=== PATIENT | male | born 1990 | race African-American/Black ===

== ENCOUNTER 2018-11-25 17:11 | Inpatient (IN) ==
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
--- NOTE | 2018-11-25 17:59 | XRay Report ---
XR chest 1V portable CLINICAL HISTORY: Chest Pain pain COMPARISON STUDY: No previous studies for comparison. FINDINGS: The bones soft tissues and hemidiaphragms are normal. The cardiomediastinal silhouette is n ormal. The lungs are clear. The pulmonary vasculature is normal. IMPRESSION: Negative chest. The above report was generated using voice recognition software. It may contain grammatical, syntax or spelling errors. Electronically signed by: Telly Coleman M.D. 11/25/2018 5:57 PM
[2018-11-25 18:55] LABS: Basophils # (auto) 0.02 K/uL (0-0.2); Basophils % (auto) 0.1 %; Hematocrit (blood only) 39.5 % (42-52); Hemoglobin 13.3 g/dL (14.0-18.0); Immature Granulocytes # (auto) 0.09 K/uL (0.00-0.02); Immature Granulocytes % (auto) 0.6 %; Lymphocytes # (auto) 0.89 K/uL (1.2-3.4); Lymphocytes % (auto) 5.5 %; Mean Corpuscular Hgb Conc 33.7 g/dL (32-36); Mean Corpuscular Volume 96.1 fL (80-100); Monocytes # (auto) 0.97 K/uL (0.11-0.59); Neutrophils # (auto) 14.32 K/uL (1.4-6.5); Neutrophils % (auto) 87.8 %; Platelet Count 179 K/uL (130-400); RDW Coefficient of Variation 12.2 % (11.5-14.5); RDW Standard Deviation 42.5 fL (36.4-46.3); Red Blood Count 4.11 M/uL (4.7-6.1); White Blood Count 16.29 K/uL (4.8-10.8)
[2018-11-25 19:12] LABS: Alanine Aminotransferase 33 U/L (12-78); Albumin Level 3.9 gm/dl (3.4-5.0); Aspartate Aminotransferase 18 U/L (15-37); BUN Creatinine Ratio 9.1 (10-20); Bilirubin Direct 0.2 mg/dl (0-0.2); Blood Urea Nitrogen 11 mg/dl (7-18); Calcium 8.8 mg/dl (8.5-10.1); Carbon Dioxide 25 mmol/L (21-32); Chloride 109 mmol/L (98-107); Creatinine Clr Calc Pharmacy 137.7 ml/min; Est GFR (African American) 97.1; Est GFR (Non-African American) 83.8; Glucose 103 mg/dl (70-99); Magnesium 1.6 mg/dl (1.8-2.4); Potassium 4.1 mmol/L (3.5-5.1); Sodium 139 mmol/L (136-145)
[2018-11-25 19:23] LABS: Albumin Globulin Ratio 1.3 (0.9-2); Alkaline Phosphatase 52 U/L (45-117); Bilirubin,Total 0.8 mg/dl (0.2-1); Total Protein 6.9 gm/dl (6.4-8.2); Troponin I < 0.015 ng/ml (0-0.045)
[2018-11-25 19:36] LABS: T4 Free Thyroxine 0.96 ng/dl (0.8-1.6)
--- NOTE | 2018-11-25 20:39 | Ultrasound Report ---
US venous doppler LE LT CLINICAL HISTORY: LLE PAIN. EDEMA. COMPARISON STUDY: No previous studies for comparison. FINDINGS: Real-time and color flow Doppler imaging were performed. Flow was seen within the femoral, popliteal and calf veins with no intraluminal thrombus demonstrated. The saphenous vein is patent. IMPRESSION: No evidence of deep venous thrombosis. Note is made that there is a occluded vascular gra ft within the left groin and thigh The above report was generated using voice recognition software. It may contain grammatical, syntax or spelling errors. Electronically signed by: Telly Coleman M.D. 11/25/2018 8:38 PM
[2018-11-25] MEDS ORDERED: OPTIRAY 320 125ml IV PRN (20:41)
--- NOTE | 2018-11-25 20:41 | Ultrasound Report ---
US extremity non-vascular ltd CLINICAL HISTORY: evaluate Left inguinal mass vs LN vs abscess pain. Edema. COMPARISON STUDY: No previous studies for comparison. FINDINGS: Lymph node within the left inguinal region having maximum dimensions of 4 x 3.5 x 1.5 cm. T his has generally benign morphology with a fatty hilum. This may be reactive. IMPRESSION: Lymph node within the left inguinal region as described. This has generally benign morph ology and may be reactive. The above report was generated using voice recognition software. It may contain grammatical, syntax or spelling errors. Electronically signed by: Telly Coleman M.D. 11/25/2018 8:39 PM
--- NOTE | 2018-11-25 21:01 | CT Scan Report ---
CT angio chest PE protocol CT DOSE: HISTORY: Dyspnea. Chest pain. PE TECHNIQUE: Multiaxial CT images of the chest were performed following the intravenous administration of contrast to evaluate the pulmonary arteries. Maximal intensity projection images were also obtaine d. A dose lowering technique was utilized adhering to the principles of ALARA. COMPARISON STUDY: None. FINDINGS: Lungs are considered grossly clear. Thoracic aorta is negative for aneurysm or dissection. There are several filling defects involving the second and third order left lower lobe pulmonary angelica rial vasculature. Remaining pulmonary vessels enhance appropriately. No significant mediastinal or hilar adenopathy. IMPRESSION: 1. Study is positive for several small pulmonary emboli involving the left lower lobe pulmonary arter ial distribution. 2. No evidence for main or central pulmonary embolus. 3. The lungs are clear. The above report was generated using voice recognition software. It may contain grammatical, syntax or spelling errors. Electronically signed by: Telly Coleman M.D. 11/25/2018 8:58 PM
--- NOTE | 2018-11-25 21:06 | CT Scan Report ---
CT abd pelvis IV con only CT DOSE: 2383.37 mGy.cm HISTORY: Pain Left lower abdominal pain TECHNIQUE: Multiaxial CT images of the abdomen and pelvis were performed following the use of intrave nous contrast. A dose lowering technique was utilized adhering to the principles of ALARA. COMPARISON STUDY: None. FINDINGS: The lung bases are clear. The liver, spleen, gallbladder, pancreas, kidneys, and adrenal gl ands are within normal limits. No bowel wall thickening or obstruction. The pelvic organs are unremar kable. No suspicious lytic or blastic osseous lesions. IMPRESSION: No significant abnormality identified within the abdomen or pelvis. The above report was generated using voice recognition software. It may contain grammatical, syntax or spelling errors. Electronically signed by: Telly Coleman M.D. 11/25/2018 9:04 PM
[2018-11-25] MEDS ORDERED: ENOXAPARIN 1 MG/KG SQ STA (21:12)
[2018-11-25] MEDS ORDERED: MAGNESIUM SULFATE / D5W 1 GM/100 ML BAG IV STA (21:13)
[2018-11-25] MEDS ORDERED: ENOXAPARIN 150 MG/ML SYR SQ ONE (21:30)
[2018-11-25] MEDS ORDERED: SODIUM CHLORIDE 0.9% 1000ML 2,000 ML IV ONE (21:35)
[2018-11-25] MEDS ORDERED: ACETAMINOPHEN 1,000 MG/100 ML VIAL IV STA (21:35)
[2018-11-25 22:08] LABS: Appearance Urine Clear (Clear); Bilirubin Urine Negative (Negative); Color Urine Orange; Glucose Urine UA Negative (Negative); Ketones Urine Negative (Negative); Leukocyte Esterase Urine Negative (Negative); Nitrite Urine Negative (Negative); Protein Urine Negative (Negative); Specific Gravity Urine 1.017 (1.000-1.030); Urobilinogen Urine Negative (Negative); pH Urine 6.5 (4.5-7.5)
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
[2018-11-25] MEDS ORDERED: ONDANSETRON INJ 2 MG/ML 2 ML VIAL IV PRN (23:29)
[2018-11-25] MEDS ORDERED: ALUMINUM/MAGNESIUM SUSP 30 ML UDC PO PRN (23:29)
[2018-11-25] MEDS ORDERED: ZOLPIDEM TARTRATE 5 MG TAB PO PRN (23:29)
[2018-11-25] MEDS ORDERED: ENOXAPARIN INJ 120 MG/0.8 ML SYR SQ SCH (23:29)
[2018-11-25] MEDS ORDERED: MAGNESIUM HYDROXIDE SUSP 30 ML UDC PO PRN (23:29)
[2018-11-25] MEDS ORDERED: POLYETHYLENE (MIRALAX) 17 GM PACK PO PRN (23:29)
[2018-11-26] MEDS: DOXYCYCLINE HYCLATE 100 MG in DEXTROSE 5% 100 ML IV SCH ×2 (00:39→11:59)
--- NOTE | 2018-11-26 06:57 | Ultrasound Report ---
US venous doppler LE RT CLINICAL HISTORY: Right leg swelling. Pulmonary embolism. COMPARISON STUDY: No previous studies for comparison. FINDINGS: Real-time and color flow Doppler imaging were performed. Flow was seen within the femoral, popliteal and calf veins with no intraluminal thrombus demonstrated. The saphenous vein is patent. IMPRESSION: No evidence of right lower extremity DVT. Electronically signed by: Adrian Rosa M.D. 11/26/2018 6:56 AM
[2018-11-26] MEDS: ACETAMINOPHEN 325 MG TAB PO PRN ×2 (07:03→15:15)
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
[2018-11-26] MEDS: ENOXAPARIN 150 MG/ML SYR SQ SCH ×2 (08:28→20:49)
[2018-11-26] MEDS: cefTRIAXone SODIUM 2,000 MG in DEXTROSE 5% 50 ML IV SCH (14:05)
[2018-11-26] MEDS: IBUPROFEN 600 MG TAB PO PRN (17:19)
[2018-11-27] MEDS: DOXYCYCLINE HYCLATE 100 MG in DEXTROSE 5% 100 ML IV SCH ×3 (00:06→23:55)
[2018-11-27] MEDS: ACETAMINOPHEN 325 MG TAB PO PRN ×2 (03:33→10:56)
[2018-11-27] MEDS: ENOXAPARIN 150 MG/ML SYR SQ SCH ×2 (09:15→20:07)
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
--- NOTE | 2018-11-27 10:02 | Hospitalist Progress Note ---
Date of Service November 27, 2018 Results & Data Vital Signs (Past 12 Hours) Vital Signs Temp Pulse Pulse Resp BP Pulse Ox 11/27/18 07:13 89 11/27/18 06:32 37.1 C 80 16 126/73 98 11/27/18 03:15 37.6 C H 94 H 16 146/77 H 97 11/26/18 23:10 37.4 C 89 16 117/74 98 PG Care Time/CCT Total # of Minutes Spent Total Time Spent with Patient: Total time spent is greater than 50% in coordination of care (as documented) at patient's floor/unit and/or counseling patient:
[2018-11-27] MEDS ORDERED: MAGNESIUM SULFATE / D5W 1 GM/100 ML BAG IV ONE (10:15)
[2018-11-27 10:31] LABS: Basophils # (auto) 0.01 K/uL (0-0.2); Basophils % (auto) 0.1 %; Hematocrit (blood only) 35.2 % (42-52); Hemoglobin 11.9 g/dL (14.0-18.0); Immature Granulocytes # (auto) 0.05 K/uL (0.00-0.02); Immature Granulocytes % (auto) 0.5 %; Lymphocytes # (auto) 1.23 K/uL (1.2-3.4); Lymphocytes % (auto) 11.1 %; Mean Corpuscular Volume 96.2 fL (80-100); Mean Platelet Volume 10.7 fL (7.4-10.4); Monocytes # (auto) 0.63 K/uL (0.11-0.59); Monocytes % (auto) 5.7 %; Neutrophils # (auto) 9.15 K/uL (1.4-6.5); Neutrophils % (auto) 82.6 %; Platelet Count 170 K/uL (130-400); RDW Coefficient of Variation 12.3 % (11.5-14.5); RDW Standard Deviation 43.3 fL (36.4-46.3); Red Blood Count 3.66 M/uL (4.7-6.1); White Blood Count 11.07 K/uL (4.8-10.8)
[2018-11-27 10:49] LABS: BUN Creatinine Ratio 7.9 (10-20); Calcium 8.8 mg/dl (8.5-10.1); Est GFR (African American) 109.4; Est GFR (Non-African American) 94.4; Potassium 3.6 mmol/L (3.5-5.1)
[2018-11-27 10:51] LABS: Mean Corpuscular Hgb Conc 33.8 g/dL (32-36)
[2018-11-27 10:52] LABS: Albumin Globulin Ratio 0.8 (0.9-2); Bilirubin,Total 0.9 mg/dl (0.2-1); Globulin 3.6 gm/dl (2.5-4.0); Total Protein 6.6 gm/dl (6.4-8.2)
[2018-11-27 11:04] LABS: Partial Thromboplastin Ratio 1.6; Partial Thromboplastin Time 44.4 Seconds (21.0-31.0)
[2018-11-27] MEDS: cefTRIAXone SODIUM 2,000 MG in DEXTROSE 5% 50 ML IV SCH (13:02)
--- NOTE | 2018-11-27 13:02 | Ultrasound Report ---
Study: Arterial Doppler left leg HISTORY: Claudication. Occlusion. FINDINGS: The proximal arterial vasculature of the left leg is unremarkable in appearance. Waveforms are triphasic. There is a common femoral arterial to popliteal artery graft which is occluded. Several collateral ve ssels are identified which resupply The distal popliteal artery. Monophasic and dampened waveforms are identified extending through the l eft lower leg. IMPRESSION: 1. Complete occlusion of the left common femoral artery to popliteal artery graft. 2. Partial collateral reconstitution of the distal left popliteal artery with monophasic and/or dampe calos waveforms and blood flow to the 3 runoff vessels in the left lower leg. Electronically signed by: Telly Coleman M.D. 11/27/2018 1:00 PM
[2018-11-27] MEDS: IBUPROFEN 600 MG TAB PO PRN (18:26)
[2018-11-27] MEDS ORDERED: ACETAMINOPHEN 500 MG TAB PO STA (19:14)
[2018-11-28 07:53] LABS: Basophils # (auto) 0.03 K/uL (0-0.2); Basophils % (auto) 0.3 %; Eosinophils # (auto) 0.02 K/uL (0-0.5); Eosinophils % (auto) 0.2 %; Hematocrit (blood only) 35.2 % (42-52); Hemoglobin 11.8 g/dL (14.0-18.0); Immature Granulocytes # (auto) 0.02 K/uL (0.00-0.02); Immature Granulocytes % (auto) 0.2 %; Lymphocytes # (auto) 1.55 K/uL (1.2-3.4); Lymphocytes % (auto) 17.6 %; Mean Corpuscular Hgb Conc 33.5 g/dL (32-36); Mean Platelet Volume 10.5 fL (7.4-10.4); Monocytes # (auto) 0.85 K/uL (0.11-0.59); Monocytes % (auto) 9.6 %; Neutrophils # (auto) 6.35 K/uL (1.4-6.5); Neutrophils % (auto) 72.1 %; Platelet Count 186 K/uL (130-400); RDW Coefficient of Variation 12.3 % (11.5-14.5); RDW Standard Deviation 43.9 fL (36.4-46.3); Red Blood Count 3.63 M/uL (4.7-6.1); White Blood Count 8.82 K/uL (4.8-10.8)
[2018-11-28] MEDS: IBUPROFEN 600 MG TAB PO PRN ×2 (07:55→21:07)
[2018-11-28] MEDS: ENOXAPARIN 150 MG/ML SYR SQ SCH ×2 (07:56→21:08)
[2018-11-28 08:05] LABS: Partial Thromboplastin Ratio 1.4; Partial Thromboplastin Time 37.5 Seconds (21.0-31.0)
[2018-11-28 08:18] LABS: Albumin Level 2.8 gm/dl (3.4-5.0); BUN Creatinine Ratio 6.5 (10-20); Calcium 8.7 mg/dl (8.5-10.1); Creatinine Clr Calc Pharmacy 171.3 ml/min; Est GFR (African American) 123.3; Est GFR (Non-African American) 106.4; Magnesium 2.1 mg/dl (1.8-2.4); Potassium 3.8 mmol/L (3.5-5.1)
[2018-11-28 08:21] LABS: Albumin Globulin Ratio 0.7 (0.9-2); Bilirubin,Total 0.8 mg/dl (0.2-1); Globulin 3.9 gm/dl (2.5-4.0); Total Protein 6.7 gm/dl (6.4-8.2)
[2018-11-28 09:48] LABS: Chlamydia Trach RNA NOT DETECTED (NOT DETECTED); GC (Neis gonorrhoeae) RNA NOT DETECTED (NOT DETECTED)
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
[2018-11-28] MEDS ORDERED: OPTIRAY 320 125ml IV PRN (11:43)
[2018-11-28] MEDS: DOXYCYCLINE HYCLATE 100 MG in DEXTROSE 5% 100 ML IV SCH ×2 (11:55→23:21)
--- NOTE | 2018-11-28 12:54 | CT Scan Report ---
CT angio BI runoff wo/w con CT DOSE: 6634.81 mGy.cm CLINICAL HISTORY: Left leg pain. Occluded left femoral-popliteal bypass graft. TECHNIQUE: Unenhanced images were obtained through the abdomen and lower extremities. The patient was then scanned in a dynamic helical fashion during intravenous administration of 119 cc of Optiray 320 . Angiographic images were obtained during the arterial phase. MIP imaging was performed. Sagittal ax ial and coronal) images were reviewed. A dose lowering technique was utilized adhering to the princi ples of AZAR. COMPARISON STUDY: CT scan abdomen pelvis dated 11/25/2018 FINDINGS: There is a small right pleural effusion. No hepatic or splenic masses are visualized. No gallbladder abnormalities are visualized. No pancreat ic masses are visualized. There are no renal masses. There is no evidence of bowel obstruction. There is left pelvic sidewall adenopathy.. There is no ascites. There is a 5 mm fatty nodule within the ri ght anterolateral bladder. Postcontrast images reveal no evidence of significant aortic atherosclerotic disease. There is no elizabeth dence of aneurysm. There is slight J configuration of the celiac origin with very mild narrowing. An element of median arcuate ligament syndrome cannot be excluded. There is no evidence of superior mese nteric artery stenosis. Inferior mesenteric artery is patent. There is no evidence of renal artery st enosis. There is no evidence of common iliac artery stenosis. There is no evidence of external iliac artery s tenosis. There is no evidence of common femoral artery stenosis. There is artifact from multiple surgical clips within the thigh. There is an occluded left femoral-po pliteal artery bypass graft. The enterprise left superficial femoral artery demonstrates multifocal occlu sions. There are areas of occlusion/narrowing of the left popliteal artery. There is distal reconstit ution of the left popliteal artery. There is two-vessel runoff on the left at the level of the ankle. The peroneal artery appears occluded in its midportion. On the right, there is no evidence of superf icial femoral artery, popliteal artery, or runoff vessels stenosis. There is diffuse fatty atrophy of the muscles of the left calf, foot and posterior thigh with diffuse fatty hypertrophy. This is a nonspecific finding which can be secondary to denervation pseudohypertr ophy. Clinical correlation is advocated IMPRESSION: 1. Unexplained left pelvic sidewall lymphadenopathy 2. 5 mm fatty nodule within the right anterior lateral bladder 3. Configuration of the celiac margin, raising the possibility of mild median arcuate ligament syndro me 4. No evidence of superior mesenteric, inferior mesenteric, or renal artery stenosis 5. Severe atheromatous disease within the enterprise left superficial femoral artery and popliteal artery . 6. Occlusion of the patient's left femoral-popliteal artery bypass graft 7. Distal reconstitution of the left popliteal artery. Two-vessel runoff on the left with occlusion o f the peritoneal artery in the midportion 8. No evidence of right lower extremity arterial stenosis 9. Diffuse fatty atrophy of the calf foot and posterior thigh musculature on the left. There is assoc iated diffuse fatty hypertrophy. Electronically signed by: Adrian Rosa M.D. 11/28/2018 12:52 PM
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
[2018-11-28] MEDS: ACETAMINOPHEN 325 MG TAB PO PRN (18:42)
[2018-11-28] MEDS ORDERED: VANCOMYCIN CONSULT ACTIVE PRN (22:37)
[2018-11-28] MEDS ORDERED: VANCOMYCIN HCL 2,750 MG in SODIUM CHLORIDE 0.9% 500 ML IV ONE (22:45)
[2018-11-29] MEDS: VANCOMYCIN HCL 2,000 MG in SODIUM CHLORIDE 0.9% 500 ML IV SCH ×3 (05:12→21:10)
[2018-11-29 07:40] LABS: Basophils # (auto) 0.03 K/uL (0-0.2); Basophils % (auto) 0.4 %; Eosinophils # (auto) 0.04 K/uL (0-0.5); Eosinophils % (auto) 0.5 %; Hematocrit (blood only) 34.6 % (42-52); Hemoglobin 11.7 g/dL (14.0-18.0); Immature Granulocytes # (auto) 0.06 K/uL (0.00-0.02); Immature Granulocytes % (auto) 0.7 %; Lymphocytes # (auto) 2.46 K/uL (1.2-3.4); Lymphocytes % (auto) 29.5 %; Mean Corpuscular Hgb Conc 33.8 g/dL (32-36); Mean Corpuscular Volume 97.2 fL (80-100); Mean Platelet Volume 9.7 fL (7.4-10.4); Monocytes # (auto) 0.89 K/uL (0.11-0.59); Monocytes % (auto) 10.7 %; Neutrophils # (auto) 4.87 K/uL (1.4-6.5); Neutrophils % (auto) 58.2 %; Platelet Count 204 K/uL (130-400); RDW Coefficient of Variation 12.2 % (11.5-14.5); RDW Standard Deviation 43.5 fL (36.4-46.3); Red Blood Count 3.56 M/uL (4.7-6.1); White Blood Count 8.35 K/uL (4.8-10.8)
[2018-11-29 07:51] LABS: Partial Thromboplastin Ratio 1.3; Partial Thromboplastin Time 35.2 Seconds (21.0-31.0)
[2018-11-29 08:06] LABS: Albumin Level 2.7 gm/dl (3.4-5.0); BUN Creatinine Ratio 9.8 (10-20); Calcium 8.4 mg/dl (8.5-10.1); Creatinine Clr Calc Pharmacy 195.6 ml/min; Est GFR (African American) 137.1; Est GFR (Non-African American) 118.3; Magnesium 1.9 mg/dl (1.8-2.4); Potassium 3.7 mmol/L (3.5-5.1)
[2018-11-29 08:08] LABS: Albumin Globulin Ratio 0.7 (0.9-2); Bilirubin,Total 0.6 mg/dl (0.2-1); Total Protein 6.7 gm/dl (6.4-8.2)
[2018-11-29] MEDS: ENOXAPARIN 150 MG/ML SYR SQ SCH ×2 (08:46→21:09)
--- NOTE | 2018-11-29 11:00 | Communication Note ---
Date of Service: November 29, 2018 There is no evidence of acute ischemia of his lower extremity at this time. The CTA did not show any suggestion of an infected graft. Would treat him symptomaticly at this time with anticoagulation, Please call if needed. Thank you very much for letting us participate in the care of this patient.
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
[2018-11-29] MEDS: DOXYCYCLINE HYCLATE 100 MG in DEXTROSE 5% 100 ML IV SCH ×2 (11:55→23:56)
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
[2018-11-29] MEDS: WARFARIN SOD 5 MG TAB PO SCH (15:42)
[2018-11-30] MEDS ORDERED: VANCOMYCIN TROUGH ONE (05:30)
[2018-11-30] MEDS: VANCOMYCIN HCL 2,000 MG in SODIUM CHLORIDE 0.9% 500 ML IV SCH (06:22)
[2018-11-30 06:28] LABS: Basophils # (auto) 0.04 K/uL (0-0.2); Basophils % (auto) 0.5 %; Eosinophils # (auto) 0.05 K/uL (0-0.5); Eosinophils % (auto) 0.7 %; Hematocrit (blood only) 32.6 % (42-52); Immature Granulocytes # (auto) 0.17 K/uL (0.00-0.02); Immature Granulocytes % (auto) 2.3 %; Lymphocytes # (auto) 2.91 K/uL (1.2-3.4); Lymphocytes % (auto) 39.4 %; Mean Corpuscular Hgb Conc 33.7 g/dL (32-36); Mean Corpuscular Volume 94.8 fL (80-100); Mean Platelet Volume 9.7 fL (7.4-10.4); Monocytes % (auto) 10.8 %; Neutrophils # (auto) 3.42 K/uL (1.4-6.5); Neutrophils % (auto) 46.3 %; Platelet Count 204 K/uL (130-400); RDW Coefficient of Variation 12.3 % (11.5-14.5); RDW Standard Deviation 42.5 fL (36.4-46.3); Red Blood Count 3.44 M/uL (4.7-6.1); White Blood Count 7.39 K/uL (4.8-10.8)
[2018-11-30 06:38] LABS: INR 0.9 (0.9-1.1); Partial Thromboplastin Ratio 1.4; Partial Thromboplastin Time 38.4 Seconds (21.0-31.0); Prothrombin Time 9.7 Seconds (9.0-12.0)
[2018-11-30 07:03] LABS: Albumin Level 2.6 gm/dl (3.4-5.0); BUN Creatinine Ratio 9.1 (10-20); Calcium 8.2 mg/dl (8.5-10.1); Creatinine Clr Calc Pharmacy 183.2 ml/min; Est GFR (African American) 133.3; Potassium 3.8 mmol/L (3.5-5.1)
[2018-11-30 07:06] LABS: Albumin Globulin Ratio 0.7 (0.9-2); Bilirubin,Total 0.5 mg/dl (0.2-1); Globulin 3.8 gm/dl (2.5-4.0); Total Protein 6.4 gm/dl (6.4-8.2)
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
[2018-11-30] MEDS: ENOXAPARIN 150 MG/ML SYR SQ SCH (10:24)
[2018-11-30] MEDS ORDERED: VANCOMYCIN HCL 2,000 MG in SODIUM CHLORIDE 0.9% 500 ML IV SCH (12:00)
[2018-11-30] MEDS: DOXYCYCLINE HYCLATE 100 MG in DEXTROSE 5% 100 ML IV SCH (13:38)
[2018-11-30] MEDS: WARFARIN SOD 5 MG TAB PO SCH (15:47)
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
[2018-12-01] MEDS ORDERED: VANCOMYCIN TROUGH ONE (05:30)
== END 2018-11-30 18:15 | DRG 176 ==
LOC: ED 17:11 → SUATTDRO 22:40 → 2S 22:40